=== PATIENT | female | born 1960 | race Two or more races ===

== ENCOUNTER 2019-12-18 11:30 | Inpatient (IN) | payer OTHER ==
[~2019-12-18] VITALS: Ht 165.1 cm; Wt 71.7 kg
[2019-12-18] MEDS ORDERED: VERAPAMIL PO (15:26)
[2019-12-18] MEDS ORDERED: CLONAZEPAM1 MG PO (15:27)
[2019-12-18] MEDS ORDERED: LIPITOR20 MG PO (15:27)
[2019-12-18] MEDS ORDERED: ALLEGRA ALLERG180 MG PO (15:27)
[2019-12-18] MEDS ORDERED: NEXIUM40 M1 PO (15:28)
[2019-12-18] MEDS ORDERED: SINGULAIR10 MG PO (15:28)
[2019-12-18] MEDS ORDERED: BREO ELLIPTA 21 EACH IH (15:29)
[2019-12-26] MEDS ORDERED: TRELEGY ELLIPT1 EACH IH (07:57)
[2019-12-26] MEDS ORDERED: VERELAN PM100 MG PO (07:57)
[2019-12-29] MEDS ORDERED: NEXIUM40 M1 PO (09:12)
[2019-12-29] MEDS ORDERED: OXYC1TAB9 PO (09:12)
[2019-12-29] MEDS ORDERED: PEPCID AC20 MG PO (09:13)
[2019-12-29] MEDS ORDERED: DICLOFENAC SODI75 MG PO (09:13)
[2019-12-29] MEDS ORDERED: INTESTINEX680 M1 PO (09:13)
== END 2019-12-29 10:01 | disposition home or self-care (01) | DRG 331 ==
LOC: SURH 12-25 07:00 → O/R 12-25 07:30 → SURH 12-25 07:30 → O/R 12-25 11:30 → SURH 12-25 15:19
PROVIDERS: ADMIT Surgery
PROC: 07BB4ZX Excision of Mesenteric Lymphatic, Percutaneous Endoscopic Approach, Diagnostic (ICD-10-PCS; 2019-12-25)
PROC: 0WBF4ZX Excision of Abdominal Wall, Percutaneous Endoscopic Approach, Diagnostic (ICD-10-PCS; 2019-12-25)
PROC: 3E0F7GC Introduction of Other Therapeutic Substance into Respiratory Tract, Via Natural or Artificial Opening (ICD-10-PCS; 2019-12-25)
PROC: 4A12X4Z Monitoring of Cardiac Electrical Activity, External Approach (ICD-10-PCS; 2019-12-25)
PROC: 0DTF4ZZ Resection of Right Large Intestine, Percutaneous Endoscopic Approach (ICD-10-PCS; principal; 2019-12-25 07:00)
DX: D12.1 Benign neoplasm of appendix (principal); D23.5 Other benign neoplasm of skin of trunk; K63.89 Other specified diseases of intestine; I11.9 Hypertensive heart disease without heart failure; J45.20 Mild intermittent asthma, uncomplicated; G47.33 Obstructive sleep apnea (adult) (pediatric)

== ENCOUNTER 2020-02-24 17:26 | Emergency (ER) | payer OTHER ==
[~2020-02-24] VITALS: Ht 167.6 cm; Wt 70.3 kg
[~2020-02-24 17:26] MED LIST: ALLEGRA ALLERG180 MG PO; BREO ELLIPTA 21 EACH IH; CLONAZEPAM1 MG PO; DICLOFENAC SODI75 MG PO; INTESTINEX680 M1 PO; LIPITOR20 MG PO; NEXIUM40 M1 PO; OXYC1TAB9 PO; PEPCID AC20 MG PO; SINGULAIR10 MG PO; TRELEGY ELLIPT1 EACH IH; VERAPAMIL PO; VERELAN PM100 MG PO
[2020-02-24] MEDS ORDERED: CHILDREN'S ASPI81 MG (17:39)
[2020-02-24] MEDS ORDERED: VERELAN PM100 MG (17:40)
== END 2020-02-24 21:28 | disposition home or self-care (01) ==
LOC: ER 17:26
DX: K29.60 Other gastritis without bleeding (principal)

== ENCOUNTER 2021-01-07 09:32 | Day surgery (SDC) | payer OTHER ==
[~2021-01-07 09:32] MED LIST changes: +CHILDREN'S ASPI81 MG; +VERELAN PM100 MG
== END 2021-01-07 14:25 | disposition home or self-care (01) ==
LOC: AMB-ENDOS 09:32 → CIR.AMB 14:45 → AMB-ENDOS 14:45
PROVIDERS: ATTEND Surgery
DX: K62.89 Other specified diseases of anus and rectum (principal); K64.8 Other hemorrhoids; Z20.822 Contact with and (suspected) exposure to COVID-19

== ENCOUNTER 2025-05-07 07:35 | Day surgery (SDC) | payer OTHER ==
[2025-05-07] MEDS ORDERED: DIPHENHYDRAMINE HCL 50 MG/ML VIAL 1ML IV ONE (09:45)
[2025-05-07] MEDS ORDERED: MIDAZOLAM HCL 2 MG/2 ML VIAL IV ONE (09:45)
[2025-05-07] MEDS ORDERED: fentaNYL CITRATE 50 MCG/ML AMPUL IV ONE (09:45)
== END 2025-05-07 11:00 | disposition home or self-care (01) ==
LOC: AMB-ENDOS 07:35
PROVIDERS: ATTEND Surgery
DX: D12.2 Benign neoplasm of ascending colon (principal); K57.30 Diverticulosis of large intestine without perforation or abscess without bleeding; K63.5 Polyp of colon; R63.4 Abnormal weight loss; R19.4 Change in bowel habit; Z88.5 Allergy status to narcotic agent